=== PATIENT | female | born 1945 | race Caucasian/White ===

== ENCOUNTER 2018-09-20 12:43 | Emergency (ER) | payer MEDICARE, OTHER ==
[~2018-09-20] VITALS: Ht 162.6 cm; Wt 136.1 kg
[2018-09-20] MEDS ORDERED: CLONIDINE0.1 PO (12:58)
[2018-09-20 13:36] LABS: ABSOLUTE EOSINOPHILS 0.2 thou/uL (0.0-0.7); ABSOLUTE LYMPHOCYTES 2.6 thou/uL (0.8-5.3); ABSOLUTE MONOCYTES 0.5 thou/uL (0.0-1.2); ABSOLUTE NEUTROPHILS 4.9 thou/uL (1.6-8.1); BASOPHILS 0.6 %; EOSINOPHILS 2.2 %; HEMATOCRIT 43.3 % (37.0-47.0); HEMOGLOBIN 14.3 gm/dL (12.0-15.0); LYMPHOCYTES 31.9 %; MCH 30.5 pg (26.0-34.0); MCV 92.4 fL (80.0-100.0); MONOCYTES 6.4 %; MPV 7.3 fl. (7.2-11.1); NUCLEATED RBCS 0 /100WBC; PLATELET COUNT* 243 thou/uL (150-400); POLYS 58.9 %; RBC 4.69 mil/uL (4.20-5.00); RDW-CV 13.9 % (10.5-14.5); WBC 8.3 thou/uL (4.0-11.0)
[2018-09-20 13:50] LABS: CALCIUM 8.6 mg/dL (8.5-10.1); CREATININE 0.9 mg/dL (0.6-1.3); POTASSIUM 3.9 mmol/L (3.5-5.1)
[2018-09-20 14:00] LABS: ALBUMIN 3.1 g/dL (3.4-5.0); TOTAL BILIRUBIN 0.7 mg/dL (<0.1-1.0); TOTAL PROTEIN 6.8 g/dL (6.4-8.2)
[2018-09-20] MEDS ORDERED: KEFLEX500 M1 PO (14:23)
[2018-09-20] MEDS ORDERED: DOXYCYCLINE 10100 MG PO (14:37)
[2018-09-20 14:45] LABS: ESR (SEDRATE) 10 mm/hr (0-30)
[2018-09-20 14:53] VITALS: BP 186/86
== END 2018-09-20 14:55 | disposition home or self-care (01) ==
LOC: M.ERS 12:43
PROVIDERS: Nurse Practitioner Family
DX: I89.0 Lymphedema, not elsewhere classified (principal); I10 Essential (primary) hypertension; E78.00 Pure hypercholesterolemia, unspecified; I51.7 Cardiomegaly; Z88.0 Allergy status to penicillin; Z88.2 Allergy status to sulfonamides; Z88.8 Allergy status to other drugs, medicaments and biological substances